=== PATIENT | female | born 2000 | race Two or more races ===

== ENCOUNTER 2025-01-20 09:06 | Emergency (ER) | payer MEDICAID, SELFPAY ==
[2025-01-20 09:07] VITALS: BMI 21.9
[2025-01-20 09:25] VITALS: BP 125/79; PULSE 88; RESP 18; TEMP 37.1; O2SAT 99
--- NOTE | 2025-01-20 09:29 | EDNOTE_ITS ---
<Statement entered by Snow Ochoa MD - 01/20/25 15:16> As co-signing physician, I was present and available for consult prn. I concur with the plan and care as documented by the midlevel provider. ED Dental RME/HPI General Chief complaint: Dental/Oral/Throat Stated complaint: THROAT PAIN FINISHED ABX 2DAYS AGO Time Seen by Provider: 01/20/25 10:27 Source: patient Arrival date/time: 01/20/25 09:06 24-year-old female with no known medical history presents to the emergency room with a chief complaint of a sore throat. Patient states she has been taking antibiotics for strep throat and finished them 2 days ago but her symptoms have gotten worse. Mode of arrival: ambulatory Limitations: no limitations Related Data Previous Rx's ?Medication ?Instructions ?Recorded albuterol sulfate 90 mcg/actuation 1 - 2 puff inhalati on Q6HR PRN 02/28/17 aerosol inhaler (ProAir HFA) WHEEZING #1 inh clindamycin phosphate 1 % lotion 1 applicatio topical BID #60 mL 11/26/17 (Cleocin T) doxycycline hyclate 50 mg capsule 50 mg PO Q24H #30 ca ps 11/26/17 tramadol 37.5 mg-acetaminophen 325 1 tab PO TID PRN pa in #15 tabs 02/21/22 mg tablet (Ultracet) penicillin V potassium 500 mg 500 mg PO QID #40 tabs 1 tablet amoxicillin 875 mg-potassium 1 tab PO BID 7 days #14 t abs 01/20/25 clavulanate 125 mg tablet Allergies Allergy/AdvReac Type Severity Reaction Status Date / Time No Known Allergies Allergy Verified 01/20/25 09:07 Review of Systems Review of Systems Systems Reviewed: All systems reviewed, normal except as documented Constitutional Constitutional: Reports system reviewed and no additional complaints, except as documented, Denies fatigue, Denies fever(s), Denies headache(s) and Denies weakness Eyes Eyes: Reports system reviewed and no additional complaints, except as documented, Denies blurry vision and Denies change in vision ENT Ears, Nose, Mouth, and Throat: Reports system reviewed and no additional complaints, except as documented, Denies otalgia, Denies headache(s), Denies nasal congestion, Reports sore throat, Denies throat swelling and Denies vertigo Cardiovascular Cardiovascular: Reports system reviewed and no additional complaints, except as documented, Denies chest pain, Denies dyspnea and Denies dyspnea on exertion Respiratory Respiratory: Reports system reviewed and no additional complaints, except as documented, Denies chest congestion, Denies cough, Denies dyspnea, Denies dyspnea on exertion and Denies wheezing Gastrointestinal Gastrointestinal: Reports system reviewed and no additional complaints, except as documented, Denies abdominal pain, Denies cramping, Denies nausea and Denies vomiting Genitourinary Genitourinary: Reports system reviewed and no additional complaints, except as documented Musculoskeletal Musculoskeletal: Reports system reviewed and no additional complaints, except as documented and Denies back pain Integumentary/Breasts Skin/Breast: Reports system reviewed and no additional complaints, except as documented and Denies wounds Neurologic Neurologic: Reports system reviewed and no additional complaints, except as documented, Denies confusion, Denies headache(s), Denies lack of coordination, Denies vertigo and Denies weakness Psychiatric Psychiatric: Reports system reviewed and no additional complaints, except as documented, Denies anxiety, Denies confusion, Denies depression, Denies paranoia, Denies suicidal ideation and Denies tactile hallucinations Endocrine Endocrine: Reports system reviewed and no additional complaints, except as documented and Denies fatigue Hematologic/Lymphatic Hematologic/Lymphatic: Reports system reviewed and no additional complaints, except as documented and Denies lymphadenopathy Allergic/Immunologic Allergic/Immunologic: Reports system reviewed and no additional complaints, except as documented, Denies throat swelling, Denies urticaria and Denies wheezing Past Medical History Past Medical History CARDIAC: Negative Congestive Heart Failure RESPIRATORY: Negative Chronic Obstructive Pulmonary Disease (COPD) GENITOURINARY: Negative Renal Disease ENDOCRINE: Negative Diabetes Mellitus Type 1 or Diabetes Mellitus Type 2 Social History SMOKING STATUS: Never smoker ED Exam General Limitations: Present no limitations General appearance: Present alert and in no apparent distress Head Head exam: Present atraumatic Eye Eye exam: Present normal appearance, PERRL and EOMI ENT ENT exam: Present normal exam, normal oropharynx and mucous membranes moist Expanded ENT Exam External ear exam: Present normal external inspection Throat exam: Present tonsillar erythema and tonsillar exudate Neck Neck exam: Present normal inspection, full ROM and trachea midline Chest Chest inspection: Present normal inspection and symmetric chest wall rise Respiratory Respiratory exam: Present normal lung sounds bilaterally Cardiovascular Cardiovascular exam: Present regular rate, normal rhythm and normal heart sounds Abdominal Exam Abdominal exam: Present soft and normal bowel sounds Extremities Exam Extremities exam: Present normal inspection and full ROM Back Exam Back exam: Present normal inspection and full ROM Neurological Exam Neurological exam: Present alert, oriented X3 and CN II-XII intact Psychiatric Psychiatric exam: Present normal affect and normal mood Skin Skin exam: Present warm, dry, intact and normal color Course Quality Measures none Orders Category Date Time Status cefTRIAXone [Rocephin] 1,000 mg Med 01/20/25 09:28 Discontinued Lidocaine 1% 20 ml [Xylocaine 1% 20 ML] 2.1 ml IM X1 Vital Signs Vital signs: Vital Signs Temperature 98.8 F 01/20/25 09:25 Pulse Rate 88 01/20/25 09:25 Respiratory Rate 18 01/20/25 09:25 Blood Pressure 125/79 01/20/25 09:25 Pulse Oximetry (%) 99 01/20/25 09:25 Oxygen Delivery Method Room Air 01/20/25 09:25 O2 saturation 99% within normal limits Dental / Oral MDM Narrative MDM Narrative:: 24 year old female with no known medical history presents to the emergency room with a chief complaint of a sore throat. Patient states she has been taking antibiotics for strep throat and finished them 2 days ago but her symptoms have gotten worse. Patient is hemodynamically stable and in no apparent distress. She is not febrile there is no tachycardia or tachypnea ENT examination shows an erythemic posterior pharynx with exudates to the bilateral tonsillar pillars. Patient states she is still having difficulty swallowing and pain when she swallows. The symptoms and presentation is consistent with pharyngitis. Patient states she has been on amoxicillin for the last 5 days and her symptoms have not gotten better. A shot of antibiotics and switch to Augmentin. Patient was discharged and educated to follow-up with primary care provider in the next 24 to 48 hours and return to the emergency room for any evidence of worsening signs or symptoms Patient data External records reviewed:: [facility] previous records Clinical information provided by:: patient Social determinants that could affect healthcare access:: none Patient has the following chronic illnesses:: No chronic illness How is presenting disease/condition affected by chronic disease/condition?: no chronic disease Evaluation data The following diagnostics were reviewed and interpreted by me:: lab results and radiology exam(s) Lab and/or radiology exams considered but not ordered:: Labs and radiology exams considered and ordered Interpretation Summary: N/A Medications / Prescriptions Medications or Prescriptions considered but not ordered:: Medication given Medication administrations:: Medication Administration History Discontinued Medications Ceftriaxone Sodium 1,000 mg/ (Lidocaine HCl 2.1 ml) 0 mg IM X1 ONE Stop: 01/20/25 09:29 Last Admin: 01/20/25 10:00 Dose: 1,000 mg Documented By: ROLAN Medication given Consultations Consultation(s) initiated? (list below): No Diagnosis Dental Differential Diagnosis: other (Pharyngitis/upper respiratory infection/tonsillitis) Most likely diagnosis given after review of the tests above:: Pharyngitis Admission Indicated Admission indicated?: not indicated Admission Request Was there a request for admission?: No Disposition Plan Disposition Plan: Discharge Discharge Attestation Discharge Attestation: The patient and all family members were given an opportunity to ask questions and understood the discharge instructions. Discharge instructions specifically effects, indications for sooner follow up or return to the emergency department, and the expected course of current diagnosis. Patient condition: Stable Discharge Plan Plan Patient Disposition: HOME (Self Care) Disposition Comment: Stable Prescriptions/Referrals Prescriptions/Med Rec: New amoxicillin-pot clavulanate 875-125 mg tablet 1 tab PO BID 7 Days Qty: 14 0RF No Action doxycycline hyclate 50 mg capsule 50 mg PO Q24H Qty: 30 0RF clindamycin phosphate [Cleocin T] 1 % lotion 1 applicatio TOP BID Qty: 60 0RF Rx Instructions: wash , rinse, and dry affected areas before applying medication. apply a thin layer. albuterol sulfate [ProAir HFA] 8.5 GM HFA aerosol inhaler 1 - 2 puff Inhalation Q6HR PRN (Reason: WHEEZING) Qty: 1 0RF Rx Instructions: Please give and use spacer tramadol-acetaminophen [Ultracet] 37.5-325 mg tablet 1 tab PO TID PRN (Reason: pain) Qty: 15 0RF penicillin V potassium 500 mg tablet 500 mg PO QID Qty: 40 0RF Problem List Clinical Impression: Pharyngitis Patient/Caregiver Discharge Instructions Education Materials: ED Pharyngitis, Report Pending Additional Instructions: Please follow-up with your primary care provider in the next 24 to 48 hours. Medication was sent to your pharmacy please pick it up and take it as indicated. For any evidence of worsening signs or symptoms return to the emergency room immediately Print Language: Serbian Stand Alone Forms: [facility] Award Info., Patient Portal Info Letter PA/[employer]IN[employer]SEM[employer] Supervising Physician PA/C[employer]INET ASSEMBLER Supervising Physician: Dr. OCHOA
[2025-01-20] MEDS: cefTRIAXone 1,000 MG, LIDOCAINE 1% 20 ML 2.1 ML IM (10:00)
== END 2025-01-20 11:12 | disposition home or self-care (01) ==
LOC: SERX 10:14
PROVIDERS: Emergency Provider Emergency Medicine; PCP Physician Assistant
DX: J02.9 Acute pharyngitis, unspecified (principal)
CPT/HCPCS: 96372; 99283; J0696; J3490